=== PATIENT | female | born 1980 | race Caucasian/White ===

== ENCOUNTER 2017-06-09 14:25 | Observation (INO) | payer MEDICAID ==
[~2017-06-09] VITALS: Ht 154.9 cm; Wt 68.5 kg
[2017-06-09] MEDS ORDERED: PNV1TABL76 MT (15:01)
[2017-06-09] MEDS ORDERED: LACTATED RINGERS 1,000 ML IV SCH (15:30)
== END 2017-06-09 16:30 | disposition home or self-care (01) ==
LOC: EDSTATUS 14:35 → L&D 14:40
PROVIDERS: ADMIT Obstetrics & Gynecology
DX: O26.893 Other specified pregnancy related conditions, third trimester (principal); R06.02 Shortness of breath; R10.9 Unspecified abdominal pain; R68.83 Chills (without fever); Z3A.37 37 weeks gestation of pregnancy
CPT/HCPCS: 96360; 99281; G0378; J7120

== ENCOUNTER 2017-06-23 10:05 | Inpatient (IN) | payer MEDICAID ==
[~2017-06-23] VITALS: Ht 152.4 cm; Wt 68.0 kg
[~2017-06-23 10:05] MED LIST: PNV1TABL76 MT
[2017-06-23] MEDS ORDERED: DEXT 5%/LR + PITOCIN 20UNITS/L 1,000 ML IV SCH ×3 (10:10→22:15)
[2017-06-23] MEDS ORDERED: METHYLERGONOVINE MALEATE 0.2 MG/ML IM PRN (10:15)
[2017-06-23] MEDS ORDERED: CARBOPROST TROMETHAMINE 250 MCG/ML AMPUL IM PRN (10:15)
[2017-06-23] MEDS ORDERED: NALOXONE HCL 0.4 MG/ML 1ML VIAL IM PRN (10:15)
[2017-06-23] MEDS: LACTATED RINGERS 1,000 ML IV SCH ×2 (10:48→11:30)
[2017-06-23 11:27] LABS: BASOPHILS % 0.4 % (0.0-2.0); EOSINOPHILS % 0.5 % (0.0-5.0); HEMATOCRIT. 33.8 % (36.0-48.0); HEMOGLOBIN. 11.3 g/dL (12.0-16.0); LYMPHOCYTES % 22.5 % (20.0-50.0); MEAN CORPUSCULAR HEMOGLOBIN 27.6 pg (28.0-32.0); MEAN CORPUSCULAR VOLUME 82.9 fL (81.0-99.0); MEAN PLATELET VOLUME 9.9 fl (7.4-10.4); MONOCYTES % 9.2 % (2.0-8.0); NEUTROPHILS % 67.4 % (40.0-76.0); PLATELET 239 x1000/uL (130-400); RED BLOOD CELL COUNT 4.08 mill/uL (4.2-5.4); RED CELL DISTRIBUTION WIDTH 15.2 % (11.6-14.6)
[2017-06-23 11:35] LABS: INR 0.9; PARTIAL THROMBOPLASTIN TIME 23.8 sec (23.4-31.0); PROTHROMBIN TIME 9.3 sec (9.4-11.6)
[2017-06-23 11:57] LABS: *AMPHETAMINES SCREEN URINE NEGATIVE (NEGATIVE); *BARBITURATES SCREEN URINE NEGATIVE (NEGATIVE); *BENZODIAZEPINES SCREEN URINE NEGATIVE (NEGATIVE); *COCAINE SCREEN URINE NEGATIVE (NEGATIVE); METHADONE URINE SCREEN NEGATIVE (NEGATIVE); OPIATES URINE SCREEN NEGATIVE (NEGATIVE); PHENCYCLIDINE URINE SCREEN NEGATIVE (NEGATIVE)
[2017-06-23 11:59] LABS: CANNABINOID URINE SCREEN PRESUMTIVE POSITIVE (NEGATIVE)
[2017-06-23] MEDS ORDERED: MORPHINE SULFATE/PF 1MG/ML 10ML AMP ONE (12:13)
[2017-06-23] MEDS ORDERED: FENTANYL CITRATE/PF 50MCG/ML 2ML VIAL ONE (12:13)
[2017-06-23 12:14] LABS: HEPATITIS B SURFACE ANTIGEN NEGATIVE; RUBELLA IGG 59.6 IU/mL (4.99-10)
[2017-06-23] MEDS ORDERED: EPHEDRINE SULFATE 50MG/ML VIAL ONE (12:14)
[2017-06-23] MEDS ORDERED: ONDANSETRON HCL 4MG/2ML VIAL ONE (12:14)
[2017-06-23 12:42] LABS: KETONES URINE NEGATIVE (NEGATIVE); LEUKOCYTE ESTERASE URINE NEGATIVE (NEGATIVE); NITRITE URINE NEGATIVE (NEGATIVE); OCCULT BLOOD URINE NEGATIVE (NEGATIVE); PROTEIN URINE NEGATIVE (NEGATIVE); SPECIFIC GRAVITY URINE 1.004 (1.005-1.030); UROBILINOGEN URINE 0.2 E.U./dL (0.2-1.0)
[2017-06-23 12:43] LABS: CLARITY URINE CLEAR (CLEAR); COLOR URINE YELLOW (YELLOW)
[2017-06-23] MEDS ORDERED: HYDROMORPHONE HCL/PF 2MG/ML CPJ IM PRN (14:30)
[2017-06-23] MEDS ORDERED: IBUPROFEN 400MG TABLET PO PRN (14:30)
[2017-06-23] MEDS ORDERED: RHO(D) IMMUNE GLOBULIN 300 MCG/SYR IM PRN (14:30)
[2017-06-23] MEDS ORDERED: BISACODYL 10MG SUPP PR PRN (14:30)
[2017-06-23] MEDS ORDERED: IBUPROFEN 800MG TABLET PO PRN (14:30)
[2017-06-23] MEDS ORDERED: ACETAMINOPHEN WITH CODEINE 300/30MG TABLET PO PRN (14:30)
[2017-06-23 17:00] VITALS: BP 148/81
[2017-06-23 17:30] VITALS: BP 128/85
[2017-06-23 19:30] VITALS: BP 133/78
[2017-06-23] MEDS ORDERED: DIPHENHYDRAMINE 50MG/ML VIAL IV PRN (21:45)
[2017-06-23] MEDS ORDERED: ONDANSETRON HCL 4MG/2ML VIAL IV PRN (21:45)
[2017-06-23] MEDS ORDERED: KETOROLAC 30MG/ML VIAL IV PRN (21:45)
[2017-06-24 00:05] VITALS: BP 107/71
[2017-06-24 05:30] VITALS: BP 126/84
[2017-06-24 07:00] LABS: BASOPHILS % 0.3 % (0.0-2.0); EOSINOPHILS % 0.2 % (0.0-5.0); HEMATOCRIT. 32.1 % (36.0-48.0); HEMOGLOBIN. 10.5 g/dL (12.0-16.0); LYMPHOCYTES % 13.3 % (20.0-50.0); MEAN CORPUSCULAR HEMOGLOBIN 27.3 pg (28.0-32.0); MEAN CORPUSCULAR VOLUME 83.3 fL (81.0-99.0); MEAN PLATELET VOLUME 9.5 fl (7.4-10.4); MONOCYTES % 8.4 % (2.0-8.0); NEUTROPHILS % 77.8 % (40.0-76.0); PLATELET 201 x1000/uL (130-400); RED BLOOD CELL COUNT 3.85 mill/uL (4.2-5.4); RED CELL DISTRIBUTION WIDTH 15.1 % (11.6-14.6)
[2017-06-24 08:30] VITALS: BP 115/75
[2017-06-24 15:56] VITALS: BP 119/79
[2017-06-24 20:00] VITALS: BP 133/83
[2017-06-25 05:26] VITALS: BP 129/87
[2017-06-25 07:36] VITALS: BP 119/75
[2017-06-25] MEDS ORDERED: INFLUENZA VIRUS VACCINE 0.5ML SYR IM ONE (12:15)
[2017-06-25] MEDS ORDERED: TETANUS, DIPHTHERIA, PERTUSSIS VAC/PF 0.5ML (>7YR OLD) IM ONE (12:45)
== END 2017-06-25 13:35 | disposition home or self-care (01) | DRG 540 ==
LOC: L&D 10:05 → OBSVTOIN 10:05 → 7EST PP/OB 17:32
PROVIDERS: ADMIT Obstetrics & Gynecology; ATTEND Obstetrics & Gynecology
PROC: 10D00Z1 Extraction of Products of Conception, Low, Open Approach (ICD-10-PCS; principal; 2017-06-23 13:37)
DX: O34.212 Maternal care for vertical scar from previous cesarean delivery (principal); D64.9 Anemia, unspecified; O99.02 Anemia complicating childbirth; O69.81X0 Labor and delivery complicated by cord around neck, without compression, not applicable or unspecified; Z37.0 Single live birth; Z3A.39 39 weeks gestation of pregnancy
CPT/HCPCS: 36415; 80305; 80349; 81003; 85025; 85610; 85730; 86592; 86703; 86762; 86850; 86900; 86920; 87340; 88307; 90686; 90715; J0171; J2274; J2405; J2590; J3010; J7120

== ENCOUNTER 2018-10-28 20:40 | Observation (INO) | payer MEDICAID, OTHER ==
[~2018-10-28] VITALS: Ht 152.4 cm; Wt 63.5 kg
[2018-10-28] MEDS ORDERED: CARBOPROST TROMETHAMINE 250 MCG/ML AMPUL IM PRN (21:00)
[2018-10-28] MEDS ORDERED: BETAMETHASONE ACET/BETAMET 30 MG/5 ML VIAL IM NR (21:00)
[2018-10-28] MEDS ORDERED: MISOPROSTOL 100MCG TABLET VG SCH (21:00)
[2018-10-28] MEDS ORDERED: NALOXONE HCL 0.4 MG/ML 1ML VIAL IM PRN (21:00)
[2018-10-28] MEDS ORDERED: DEXT 5%/LR + PITOCIN 20UNITS/L 1,000 ML IV SCH (21:15)
[2018-10-28 21:21] LABS: BASOPHILS % 0.3 % (0.0-2.0); EOSINOPHILS % 0.8 % (0.0-5.0); HEMOGLOBIN. 10.8 g/dL (12.0-16.0); LYMPHOCYTES % 24.2 % (20.0-50.0); MEAN CORPUSCULAR HEMOGLOBIN 30.4 pg (28.0-32.0); MEAN CORPUSCULAR VOLUME 89.7 fL (81.0-99.0); MEAN PLATELET VOLUME 9.1 fl (7.4-10.4); MONOCYTES % 7.7 % (2.0-8.0); PLATELET 240 x1000/uL (130-400); RED BLOOD CELL COUNT 3.57 mill/uL (4.2-5.4); RED CELL DISTRIBUTION WIDTH 13.4 % (11.6-14.6)
[2018-10-28 21:26] LABS: INR 0.9; PARTIAL THROMBOPLASTIN TIME 24.4 sec (23.4-31.0); PROTHROMBIN TIME 9.8 sec (9.6-11.0)
[2018-10-28] MEDS: LACTATED RINGERS 1,000 ML IV SCH (21:38)
[2018-10-28 21:53] LABS: HEPATITIS B SURFACE ANTIGEN NEGATIVE
[2018-10-28 22:12] LABS: CLARITY URINE CLEAR (CLEAR); COLOR URINE YELLOW (YELLOW); KETONES URINE NEGATIVE (NEGATIVE); LEUKOCYTE ESTERASE URINE NEGATIVE (NEGATIVE); NITRITE URINE NEGATIVE (NEGATIVE); OCCULT BLOOD URINE NEGATIVE (NEGATIVE); PROTEIN URINE NEGATIVE (NEGATIVE); SPECIFIC GRAVITY URINE 1.003 (1.005-1.030); UROBILINOGEN URINE 0.2 E.U./dL (0.2-1.0)
[2018-10-28 22:25] LABS: *AMPHETAMINES SCREEN URINE NEGATIVE (NEGATIVE); *BARBITURATES SCREEN URINE NEGATIVE (NEGATIVE); *BENZODIAZEPINES SCREEN URINE NEGATIVE (NEGATIVE); *COCAINE SCREEN URINE NEGATIVE (NEGATIVE)
[2018-10-28 22:26] LABS: METHADONE URINE SCREEN NEGATIVE (NEGATIVE); OPIATES URINE SCREEN NEGATIVE (NEGATIVE); PHENCYCLIDINE URINE SCREEN NEGATIVE (NEGATIVE)
[2018-10-28 22:31] LABS: CANNABINOID URINE SCREEN PRESUMTIVE POSITIVE (NEGATIVE)
[2018-10-29] MEDS: LACTATED RINGERS 1,000 ML IV SCH ×2 (05:18→13:24)
[2018-10-29 06:45] LABS: HEMATOCRIT. 30.5 % (36.0-48.0); HEMOGLOBIN. 10.4 g/dL (12.0-16.0); LYMPHOCYTES % 8.4 % (20.0-50.0); MEAN CORPUSCULAR HEMOGLOBIN 30.3 pg (28.0-32.0); MEAN CORPUSCULAR VOLUME 89.1 fL (81.0-99.0); MEAN PLATELET VOLUME 9.3 fl (7.4-10.4); MONOCYTES % 1.8 % (2.0-8.0); NEUTROPHILS % 89.8 % (40.0-76.0); PLATELET 237 x1000/uL (130-400); RED BLOOD CELL COUNT 3.42 mill/uL (4.2-5.4); RED CELL DISTRIBUTION WIDTH 13.5 % (11.6-14.6)
[2018-10-29 20:34] LABS: BASOPHILS % 0.1 % (0.0-2.0); EOSINOPHILS % 0.1 % (0.0-5.0); HEMATOCRIT. 28.2 % (36.0-48.0); HEMOGLOBIN. 9.5 g/dL (12.0-16.0); LYMPHOCYTES % 12.6 % (20.0-50.0); MEAN CORPUSCULAR HEMOGLOBIN 30.1 pg (28.0-32.0); MEAN CORPUSCULAR VOLUME 89.1 fL (81.0-99.0); MEAN PLATELET VOLUME 9.1 fl (7.4-10.4); MONOCYTES % 5.9 % (2.0-8.0); NEUTROPHILS % 81.3 % (40.0-76.0); PLATELET 224 x1000/uL (130-400); RED BLOOD CELL COUNT 3.16 mill/uL (4.2-5.4); RED CELL DISTRIBUTION WIDTH 13.3 % (11.6-14.6)
[2018-10-29] MEDS ORDERED: BETAMETHASONE ACET/BETAMET 30 MG/5 ML VIAL IM NR (21:00)
[2018-11-06 07:14] LABS: CANNABINOID CONFIRMATION URINE Positive (.)
== END 2018-10-29 22:35 | disposition home or self-care (01) ==
LOC: INTOOBSV 20:40 → OBSVTOIN 20:40 → 8 EST LDRP 20:40
PROVIDERS: ADMIT Obstetrics & Gynecology; ATTEND Obstetrics & Gynecology
DX: O45.92 Premature separation of placenta, unspecified, second trimester (principal); Z3A.22 22 weeks gestation of pregnancy
CPT/HCPCS: 36415; 76805; 80305; 80349; 81003; 85025; 85610; 85730; 86592; 86703; 86762; 86850; 86900; 86901; 86920; 87340; 96372; 99281; G0378; J0702; 96360; 96361

== ENCOUNTER 2018-12-25 21:48 | Observation (INO) | payer MEDICAID ==
[~2018-12-25] VITALS: Ht 154.9 cm; Wt 68.9 kg
[2018-12-25] MEDS ORDERED: PREN1TAB78 MT (22:27)
[2018-12-25] MEDS ORDERED: BETAMETHASONE ACET/BETAMET 30 MG/5 ML VIAL IM NR (22:30)
[2018-12-25] MEDS ORDERED: LACTATED RINGERS 1,000 ML IV SCH (22:30)
[2018-12-25 22:54] LABS: CLARITY URINE CLOUDY (CLEAR); COLOR URINE RED (YELLOW); KETONES URINE NEGATIVE (NEGATIVE); LEUKOCYTE ESTERASE URINE TRACE (NEGATIVE); NITRITE URINE NEGATIVE (NEGATIVE); OCCULT BLOOD URINE 3+ (NEGATIVE); PROTEIN URINE 1+ (NEGATIVE); SPECIFIC GRAVITY URINE 1.006 (1.005-1.030); UROBILINOGEN URINE 0.2 E.U./dL (0.2-1.0)
[2018-12-25 22:58] LABS: BASOPHILS % 0.9 % (0.0-2.0); EOSINOPHILS % 0.9 % (0.0-5.0); HEMATOCRIT. 32.2 % (36.0-48.0); LYMPHOCYTES % 26.3 % (20.0-50.0); MEAN CORPUSCULAR HEMOGLOBIN 29.5 pg (28.0-32.0); MEAN CORPUSCULAR VOLUME 86.5 fL (81.0-99.0); MEAN PLATELET VOLUME 9.2 fl (7.4-10.4); MONOCYTES % 10.5 % (2.0-8.0); NEUTROPHILS % 61.4 % (40.0-76.0); PLATELET 238 x1000/uL (130-400); RED BLOOD CELL COUNT 3.72 mill/uL (4.2-5.4); RED CELL DISTRIBUTION WIDTH 13.8 % (11.6-14.6)
[2018-12-25] MEDS ORDERED: DEXT 5%/LACTATED RINGERS 1,000 ML IV SCH (23:00)
== END 2018-12-26 08:15 | disposition home or self-care (01) ==
LOC: 8 EST LDRP 21:48
PROVIDERS: ADMIT Obstetrics & Gynecology; ATTEND Obstetrics & Gynecology
DX: O62.9 Abnormality of forces of labor, unspecified (principal); Z3A.32 32 weeks gestation of pregnancy
CPT/HCPCS: 36415; 76805; 76818; 81003; 85025; G0378; 96360; 99281; J7120; J7121

== ENCOUNTER 2019-01-13 14:56 | Observation (INO) | payer MEDICAID ==
[~2019-01-13] VITALS: Ht 152.4 cm; Wt 76.7 kg
[~2019-01-13 14:56] MED LIST changes: -PNV1TABL76 MT; +PREN1TAB78 MT
== END 2019-01-13 18:16 | disposition home or self-care (01) ==
LOC: 8 EST LDRP 14:56
PROVIDERS: ADMIT Obstetrics & Gynecology; ATTEND Obstetrics & Gynecology
DX: O26.893 Other specified pregnancy related conditions, third trimester (principal); R10.2 Pelvic and perineal pain; Z3A.35 35 weeks gestation of pregnancy
CPT/HCPCS: 76805; 99281; G0378

== ENCOUNTER 2019-02-14 21:00 | Inpatient (IN) | payer MEDICAID ==
[~2019-02-14] VITALS: Ht 152.4 cm; Wt 70.3 kg
[2019-02-14] MEDS ORDERED: LACTATED RINGERS 1,000 ML IV SCH (21:11)
[2019-02-14] MEDS ORDERED: NALOXONE HCL 0.4 MG/ML 1ML VIAL IM PRN (21:15)
[2019-02-14] MEDS ORDERED: LIDOCAINE HCL 1% 20ML VIAL (Pyxis) INJ INFIL SCH (21:15)
[2019-02-14] MEDS ORDERED: METHYLERGONOVINE MALEATE 0.2 MG/ML IM PRN (21:15)
[2019-02-14] MEDS ORDERED: SUCCINYLCHOLINE CHLORIDE 200MG/10ML IV ONE (21:36)
[2019-02-14] MEDS ORDERED: CEFAZOLIN SODIUM 1000MG/VIAL ONE (21:36)
[2019-02-14] MEDS ORDERED: ONDANSETRON HCL 4MG/2ML INJ ONE (21:40)
[2019-02-14] MEDS ORDERED: EPHEDRINE SULFATE 50MG/ML VIAL ONE (21:40)
[2019-02-14] MEDS ORDERED: PHENYLEPHRINE HCL 10 MG/ML 1ML (IV VIAL) IV ONE (21:40)
[2019-02-14] MEDS ORDERED: ETOMIDATE 2MG/ML 10ML VIAL IV ONE (21:40)
[2019-02-14 21:51] LABS: BASOPHILS % 0.4 % (0.0-2.0); EOSINOPHILS % 0.3 % (0.0-5.0); HEMATOCRIT. 21.9 % (36.0-48.0); LYMPHOCYTES % 20.7 % (20.0-50.0); MEAN CORPUSCULAR HEMOGLOBIN 24.1 pg (28.0-32.0); MEAN CORPUSCULAR VOLUME 80.6 fL (81.0-99.0); MEAN PLATELET VOLUME 8.7 fl (7.4-10.4); MONOCYTES % 7.5 % (2.0-8.0); NEUTROPHILS % 71.1 % (40.0-76.0); PLATELET 239 x1000/uL (130-400); RED BLOOD CELL COUNT 2.71 mill/uL (4.2-5.4); RED CELL DISTRIBUTION WIDTH 19.9 % (11.6-14.6)
[2019-02-14 21:56] LABS: HEMOGLOBIN. 6.5 g/dL (12.0-16.0)
[2019-02-14 21:59] LABS: PARTIAL THROMBOPLASTIN TIME 20.9 sec (23.4-31.0); PROTHROMBIN TIME 9.9 sec (9.6-11.0)
[2019-02-14] MEDS ORDERED: SODIUM CHLORIDE 0.9% 1,000 ML IV SCH (22:00)
[2019-02-14] MEDS ORDERED: MORPHINE SULFATE/PF 1MG/ML 10ML AMP ONE (22:06)
[2019-02-14 22:25] LABS: HEPATITIS B SURFACE ANTIGEN NEGATIVE
[2019-02-14] MEDS ORDERED: MISOPROSTOL 200MCG TABLET RC SCH (23:11)
[2019-02-14 23:36] LABS: CLARITY URINE CLOUDY (CLEAR); COLOR URINE DARK YELLOW (YELLOW); KETONES URINE TRACE (NEGATIVE); LEUKOCYTE ESTERASE URINE NEGATIVE (NEGATIVE); NITRITE URINE NEGATIVE (NEGATIVE); OCCULT BLOOD URINE 2+ (NEGATIVE); PROTEIN URINE 1+ (NEGATIVE); SPECIFIC GRAVITY URINE 1.029 (1.005-1.030)
[2019-02-14] MEDS ORDERED: KETOROLAC 60MG/2ML VIAL IM ONE (23:41)
[2019-02-14] MEDS ORDERED: MIDAZOLAM HCL 2 MG/2 ML VIAL ONE ×2 (23:44→23:49)
[2019-02-14] MEDS ORDERED: PROPOFOL 200MG/20ML VIAL IV ONE (23:46)
[2019-02-14 23:53] LABS: *AMPHETAMINES SCREEN URINE NEGATIVE (NEGATIVE); *BARBITURATES SCREEN URINE NEGATIVE (NEGATIVE); *BENZODIAZEPINES SCREEN URINE NEGATIVE (NEGATIVE); *COCAINE SCREEN URINE NEGATIVE (NEGATIVE); METHADONE URINE SCREEN NEGATIVE (NEGATIVE); OPIATES URINE SCREEN NEGATIVE (NEGATIVE); PHENCYCLIDINE URINE SCREEN NEGATIVE (NEGATIVE)
[2019-02-15] VITALS (7 sets, daily range): BP systolic 89–104; BP diastolic 53–71
[2019-02-15 00:14] LABS: CANNABINOID URINE SCREEN PRESUMTIVE POSITIVE (NEGATIVE)
[2019-02-15] MEDS ORDERED: ONDANSETRON HCL 4MG/2ML INJ IV PRN (00:45)
[2019-02-15] MEDS ORDERED: BUTORPHANOL TARTRATE 2 MG/ML VIAL IV PRN (00:45)
[2019-02-15] MEDS ORDERED: NALOXONE HCL 0.4 MG/ML 1ML VIAL IV PRN (00:45)
[2019-02-15] MEDS ORDERED: MEPERIDINE HCL/PF 25MG/ML CPJ IV PRN (00:45)
[2019-02-15] MEDS ORDERED: DEXAMETHASONE 10 MG/ML VIAL IV PRN (00:45)
[2019-02-15] MEDS ORDERED: LANOLIN OINT 7GM TUBE TOP PRN (00:45)
[2019-02-15] MEDS ORDERED: DIPHENHYDRAMINE 50MG/ML VIAL IV PRN (00:45)
[2019-02-15 01:14] LABS: BASOPHILS % 0.3 % (0.0-2.0); HEMOGLOBIN. 7.2 g/dL (12.0-16.0); LYMPHOCYTES % 8.3 % (20.0-50.0); MEAN CORPUSCULAR HEMOGLOBIN 26.7 pg (28.0-32.0); MEAN CORPUSCULAR VOLUME 84.8 fL (81.0-99.0); MEAN PLATELET VOLUME 8.6 fl (7.4-10.4); NEUTROPHILS % 86.4 % (40.0-76.0); PLATELET 169 x1000/uL (130-400); RED BLOOD CELL COUNT 2.71 mill/uL (4.2-5.4); RED CELL DISTRIBUTION WIDTH 18.4 % (11.6-14.6)
[2019-02-15 01:24] LABS: CHLORIDE 115 mEq/L (98-107)
[2019-02-15] MEDS: DEXT 5%/LR + PITOCIN 20UNITS/L 1,000 ML IV SCH ×2 (01:37→03:10)
[2019-02-15] MEDS ORDERED: OXYTOCIN 20 UNITS in LACTATED RINGERS 1,000 ML IV SCH (01:54)
[2019-02-15] MEDS ORDERED: IBUPROFEN 800 MG in SODIUM CHLORIDE 0.9% 250 ML IV SCH (03:00)
[2019-02-15 08:00] LABS: BASOPHILS % 0.2 % (0.0-2.0); HEMATOCRIT. 26.2 % (36.0-48.0); HEMOGLOBIN. 8.4 g/dL (12.0-16.0); LYMPHOCYTES % 7.8 % (20.0-50.0); MEAN CORPUSCULAR HEMOGLOBIN 26.7 pg (28.0-32.0); MEAN CORPUSCULAR VOLUME 83.4 fL (81.0-99.0); MEAN PLATELET VOLUME 8.8 fl (7.4-10.4); MONOCYTES % 5.9 % (2.0-8.0); NEUTROPHILS % 86.1 % (40.0-76.0); PLATELET 148 x1000/uL (130-400); RED BLOOD CELL COUNT 3.14 mill/uL (4.2-5.4); RED CELL DISTRIBUTION WIDTH 18.2 % (11.6-14.6)
[2019-02-15] MEDS: SIMETHICONE 80MG TABLET CHEW PO SCH ×4 (08:00→20:45)
[2019-02-15] MEDS ORDERED: INFLUENZA VIRUS VACCINE(AFLURIA) 0.5ML SYR IM ONE (12:00)
[2019-02-15] MEDS: DOCUSATE SODIUM 100MG CAPSULE PO SCH (20:45)
[2019-02-15] MEDS: ACETAMINOPHEN WITH CODEINE 300/30MG TABLET PO PRN (20:50)
[2019-02-16] VITALS (13 sets, daily range): BP systolic 117–136; BP diastolic 66–85
[2019-02-16] MEDS ORDERED: TETANUS, DIPHTHERIA, PERTUSSIS VAC/PF 0.5ML (>7YR OLD) IM ONE (06:00)
[2019-02-16 07:14] LABS: BASOPHILS % 0.4 % (0.0-2.0); EOSINOPHILS % 0.1 % (0.0-5.0); LYMPHOCYTES % 8.9 % (20.0-50.0); MEAN CORPUSCULAR HEMOGLOBIN 27.9 pg (28.0-32.0); MEAN CORPUSCULAR VOLUME 84.5 fL (81.0-99.0); MEAN PLATELET VOLUME 9.3 fl (7.4-10.4); MONOCYTES % 5.9 % (2.0-8.0); NEUTROPHILS % 84.7 % (40.0-76.0); PLATELET 195 x1000/uL (130-400); RED BLOOD CELL COUNT 2.37 mill/uL (4.2-5.4); RED CELL DISTRIBUTION WIDTH 19.6 % (11.6-14.6)
[2019-02-16] MEDS: PRENATAL VIT/FE FUMARATE/FA TABLET PO SCH (07:57)
[2019-02-16] MEDS: ACETAMINOPHEN WITH CODEINE 300/30MG TABLET PO PRN ×2 (07:57→14:38)
[2019-02-16] MEDS: SIMETHICONE 80MG TABLET CHEW PO SCH ×2 (07:57→21:52)
[2019-02-16 08:46] LABS: HEMOGLOBIN. 6.6 g/dL (12.0-16.0)
[2019-02-16] MEDS ORDERED: BISACODYL 10MG SUPP PR NR (09:00)
[2019-02-16] MEDS ORDERED: BISACODYL 10MG SUPP PR PRN (17:45)
[2019-02-16] MEDS: DOCUSATE SODIUM 100MG CAPSULE PO SCH (21:52)
[2019-02-17] VITALS: BP 126/71
[2019-02-17 04:00] VITALS: BP 146/86
[2019-02-17 07:07] LABS: BASOPHILS % 0.3 % (0.0-2.0); EOSINOPHILS % 0.3 % (0.0-5.0); HEMATOCRIT. 24.3 % (36.0-48.0); HEMOGLOBIN. 8.1 g/dL (12.0-16.0); LYMPHOCYTES % 12.8 % (20.0-50.0); MEAN CORPUSCULAR HEMOGLOBIN 28.5 pg (28.0-32.0); MEAN CORPUSCULAR VOLUME 85.5 fL (81.0-99.0); MEAN PLATELET VOLUME 8.5 fl (7.4-10.4); MONOCYTES % 6.9 % (2.0-8.0); NEUTROPHILS % 79.7 % (40.0-76.0); PLATELET 225 x1000/uL (130-400); RED BLOOD CELL COUNT 2.84 mill/uL (4.2-5.4); RED CELL DISTRIBUTION WIDTH 18.1 % (11.6-14.6)
[2019-02-17 09:00] VITALS: BP 126/76
[2019-02-17] MEDS: SIMETHICONE 80MG TABLET CHEW PO SCH (09:15)
[2019-02-17] MEDS: PRENATAL VIT/FE FUMARATE/FA TABLET PO SCH (09:15)
== END 2019-02-17 17:00 | disposition home or self-care (01) | DRG 540 ==
LOC: OBSVTOIN 21:00 → 8 EST LDRP 21:00 → 8EST 02-15 04:15
PROVIDERS: ADMIT Obstetrics & Gynecology Obstetrics; ATTEND Obstetrics & Gynecology Obstetrics
PROC: 30233N1 Transfusion of Nonautologous Red Blood Cells into Peripheral Vein, Percutaneous Approach (ICD-10-PCS; principal; 2019-02-14)
PROC: 30233K1 Transfusion of Nonautologous Frozen Plasma into Peripheral Vein, Percutaneous Approach (ICD-10-PCS; 2019-02-14)
PROC: 10D00Z1 Extraction of Products of Conception, Low, Open Approach (ICD-10-PCS; 2019-02-15)
DX: O34.219 Maternal care for unspecified type scar from previous cesarean delivery (principal); K66.1 Hemoperitoneum; D62 Acute posthemorrhagic anemia; O99.12 Other diseases of the blood and blood-forming organs and certain disorders involving the immune mechanism complicating childbirth; O99.324 Drug use complicating childbirth; Z37.0 Single live birth; Z3A.01 Less than 8 weeks gestation of pregnancy; O90.81 Anemia of the puerperium; F12.10 Cannabis abuse, uncomplicated; O45.90 Premature separation of placenta, unspecified, unspecified trimester; O67.9 Intrapartum hemorrhage, unspecified; O44.10 Complete placenta previa with hemorrhage, unspecified trimester; Z30.2 Encounter for sterilization
CPT/HCPCS: 36415; 80048; 80305; 80349; 81003; 86592; 86703; 86762; 86850; 86900; 86920; 86927; 87340; 88305; 88307; 90686; 90715; 99281; G0378; J0330; J0690; J1741; J1885; J2210; J2250; J2274; J2370; J2405; J2590; J2704; J3490; J7030; J7050; J7070; J7120; P9016; P9017